=== PATIENT | male | born 1975 | race Caucasian/White ===

== ENCOUNTER → 2023-07-06 | Outpatient (CLI) | payer BC, SELFPAY ==
--- NOTE | 2023-07-06 13:32 | RAD_ITS ---
STUDY: X-RAY - RIGHT HAND REASON FOR EXAM: Male, 48 years old. Right hand contusion TECHNIQUE: 3 view(s) of the hand. COMPARISON: None. FINDINGS: Normal radiocarpal articulation. Normal distal radioulnar joint. Normal visualized carpal bones. Normal carpal articulations Normal carpometacarpal articulation of the thumb. Normal second through fifth carpometacarpal joints. Normal metacarpi. Normal metacarpophalangeal joint of the thumb. Normal interphalangeal joint of the thumb. Normal proximal and distal phalanges of the thumb. Normal metacarpophalangeal joints of the second through fifth fingers. Normal proximal and distal interphalangeal joints of the second through fifth fingers. Normal phalanges of the second through fifth fingers. The soft tissue structures are unremarkable. RAD/Hand Min 3 Views IMPRESSION: Normal x-ray examination of the hand. Electronically Signed: Ambrosio Cheney MD at 14:18 EST ,
== END | disposition home or self-care (01) ==
LOC: MTRAD 13:32
PROVIDERS: Referring Provider Physician Assistant Surgical; Visit Provider Physician Assistant Surgical
DX: S60.221A Contusion of right hand, initial encounter (principal)
CPT/HCPCS: 73130

== ENCOUNTER 2025-05-22 09:24 | Emergency (ER) | payer OTHER, SELFPAY ==
[2025-05-22 09:24] VITALS: BP 180/140; PULSE 94; RESP 18; TEMP 36.8; O2SAT 94; BMI 35.6
--- NOTE | 2025-05-22 09:36 | CT_ITS ---
PROCEDURE: CT/Abdomen/Pelvis W IV Cont ONLY
--- NOTE | 2025-05-22 09:38 | RAD_ITS ---
PROCEDURE: RAD/Hand Min 3 Views
--- NOTE | 2025-05-22 09:38 | EX.ED.DYSGE1 ---
HPI History of Present Illness Chief Complaint: Fall Narrative Narrative: Patient is a 50-year-old female who presented to the emergency department with a chief complaint of fall. Patient states that she went out on the deck this morning and notes that she slipped and fell landing on her buttocks. States that she did bump her head however states that she not passed that she did not lose consciousness she is not on any blood thinning medications. She also is complaining of some right hand pain when she tried to catch herself but denies any wrist pain on that side. [facility] Medical History Allergic rhinitis Left otitis externa Home Medications ?Medication ?Instructions ?Recorded ?Last Taken ?Type cyclobenzaprine 10 mg tablet 10 mg PO TID PRN muscle spasm #14 05/22/25 Unknown Rx tabs Allergy/AdvReac Type Severity Reaction Status Date / Time Food Allergies: Uncoded Allergy Other Verified 05/22/25 09:29 Latex, Natural Rubber AdvReac Severe Hives Verified 05/22/25 09:29 Opioids - Morphine Analogues AdvReac Unknown Nausea/Vom/ Verified 05/22/25 09:29 (narcotics) Diarrhea Social History Smoking Status: Unknown if ever smoked ROS ROS ED ROS Narrative Constitutional: Denies headache, lightness, dizziness, fevers, chills Eyes: Denies double vision Cardiovascular: Denies chest pain Respiratory: Denies shortness of breath Abdomen: Denies nausea vomit diarrhea : Denies urinary symptoms Neurological: Denies any numbness, weakness, tingling Musculoskeletal: Complains of low back pain and buttock pain as well as right hand pain as noted above Skin: Denies rashes or lesions EXAM Physical Exam Narrative Exam Narrative: General: Patient was lying in bed rest comfortably did not appear to be in acute distress Head: Atraumatic, normocephalic Eyes: PERRL bilaterally, EOMI bilaterally, no conjunctival injection noted Neck: Soft, supple, trachea midline Cardiovascular: Regular rate and rhythm Respiratory: Clear to auscultation bilaterally Abdomen: No tenderness to palpation Musculoskeletal: Patient has tenderness palpation over the right proximal metacarpal region near her thumb, tenderness palpation midline of the lower lumbar spine no step-offs or deformities noted. All other bony prominences palpated joints taken through full range of motion no pain elicited Extremities: +5/5 strength noted to bilateral lower extremities, radial pulses +2/4 in the bilateral extremities Neurological: Patient is lying in bed rest comfortably did not appear to be in acute distress Skin: Warm, dry, tact no rashes or lesions noted Const Vital Signs: 05/22/25 09:24 05/22/25 09:55 Temperature 98.2 F Temperature Source Oral Pulse Rate 94 Respiratory Rate 18 Respiratory Effort Normal Non-Labored Respiratory Pattern Normal Blood Pressure 180/140 H Blood Pressure Mean 153 Pulse Ox 94 Oxygen Delivery Method Room Air Room Air MDM MDM MDM Narrative Medical decision making narrative: Patient is a 50-year-old female who presents to the emergency department with a chief complaint of fall with low back pain. On the differential diagnose includes but limited to inferior pubic rami fracture, compression fracture of the lumbar spine, metacarpal fracture. Once the workup is obtained and reviewed she will be reevaluated. Patient be given Norflex and Toradol. Patient's BMP reviewed and showed no acute findings sodium was normal at 141, potassium of 4.6, creatinine normal at 0.97. Patient x-ray of her hand reviewed by myself by radiology showed no acute fracture or dislocation. Patient CT abdomen pelvis without contrast reviewed and showed fatty infiltration of the liver hepatic cyst. 3.2 cm 2 cm hypodense nodule in the left adrenal gland suggesting of adenoma. Discussed results with patient she would like to go home at this point time. Patient does not want any pain medication to go she will take a prescription for cyclobenzaprine she was vies not operating thing under the influence this medication she is vies follow-up with her doctor outpatient setting return with worsening symptoms or concerns. She is agreeable to plan all question concerns answered she was discharged home in stable condition Lab Data Labs: Laboratory Results - last 24 hr 05/22/25 09:50 Sodium 141 Potassium 4.6 Chloride 105 Carbon Dioxide 27.0 Anion Gap 9 BUN 16 Creatinine 0.97 Estim Creat Clear Calc 78.88 Est GFR (MDRD) Non-Af 72 BUN/Creatinine Ratio 16.9 Glucose 111 H Calcium 10.6 Radiography Diagnostic Testing: Clinical Impression(s) from Imaging Studies Abdomen/Pelvis CT 05/22/25 09:36 IMPRESSION: Fatty infiltration of the liver. Hepatic cysts. 3.2 cm 2 cm hypodense nodule in the left adrenal gland suggestive of adenoma. Reading Location: [facility] Hand X-Ray 05/22/25 09:38 IMPRESSION: NEGATIVE HAND SERIES Reading Location: [facility] Discharge Plan Triage Chief Complaint: Fall ED Provider: Girish Anand Dx/Rx/DC Orders Clinical Impression: Low back pain, Fall, Hand pain, right Prescriptions: New cyclobenzaprine 10 mg tablet 10 mg PO TID PRN (Reason: muscle spasm) Qty: 14 0RF Primary Care Provider: SERGIO ORTIZ MD Referrals: Care Physician,No Primary [Non-Staff, Medical] Activity Restrictions/Additional Instructions: Follow-up with your primary care physician outpatient setting. Return with worsening symptoms or any other concerns. Rotate Tylenol and ibuprofen [id number] when you do this you can take something every 3 hours for pain with a max dose of Tylenol in 24 hours 4000 mg max dose of ibuprofen in 24 hours 3200 mg. Use muscle relaxers as prescribed do not operate anything under the influence of this as it will make you sleepy and drowsy. Print Language: Pashto Disposition Disposition: Home, Self Care
[2025-05-22 10:26] LABS: Anion Gap 9 (5-15); BUN 16 mg/dL (4-19); BUN/Creat Ratio 16.9 RATIO (10-20); Calcium,Total 10.6 mg/dL (7.6-11.0); Carbon Dioxide 27.0 mmol/L (21.0-32.0); Chloride 105 mmol/L (98-108); Estimated Creatinine Clearance 78.88 ml/min (50-250); Glucose 111 mg/dL (70-99); Potassium 4.6 mmol/L (3.3-5.1)
--- NOTE | 2025-05-22 10:35 | ED.RN ---
Patient requesting to walk to xray, pt given no medications, ambulated to radiology with tech, gait slow but steady
[2025-05-22 11:21] VITALS: BP 119/66; PULSE 65; RESP 14; TEMP 36.6; O2SAT 100
== END 2025-05-22 11:22 | disposition home or self-care (01) ==
PROVIDERS: Emergency Provider Emergency Medicine; Visit Provider Emergency Medicine
DX: M54.50 Low back pain, unspecified (principal); K76.0 Fatty (change of) liver, not elsewhere classified; E27.8 Other specified disorders of adrenal gland; M79.641 Pain in right hand
CPT/HCPCS: 73130; 74177; 80048; 96374; 96375; 99283; Q9967; A4216